=== PATIENT | female | born 1995 | race American Indian/Alaskan Native ===

== ENCOUNTER 2019-06-05 10:18 | Emergency (ER) | payer SELFPAY ==
--- NOTE | 2019-06-05 11:34 | Emergency Department Report ---
ED Abdominal Pain HPI - General Chief Complaint: Medical Clearance Stated Complaint: CHECK UP Time Seen by Provider: 06/05/19 11:33 Source: patient Mode of arrival: Ambulatory Limitations: No Limitations - History of Present Illness Initial Comments: Patient requesting a "check up" to check and see if anything is wrong with her body. Complaint: abdominal pain Onset/Timin -: hour(s) Location: RLQ, suprapubic Radiation: none Migration to: no migration Severity: mild Severity scale (0 -10): 1 Quality: aching Consistency: intermittent Improves With: nothing Worsens With: nothing Context: other (unknown) Associated Symptoms: denies other symptoms. denies: nausea, vomiting, diarrhea, fever, chills, constipation, dysuria, hematemesis, hematochezia, melena, hematuria, anorexia, syncope - Related Data LMP Date: 06/01/19 Allergies Allergy/AdvReac Type Severity Reaction Status Date / Time No Known Allergies Allergy Verified 06/05/19 10:28 ED Review of Systems ROS: Stated complaint: CHECK UP Other details as noted in HPI Constitutional: denies: chills, fever Eyes: denies: eye pain, eye discharge, vision change ENT: denies: ear pain, throat pain Respiratory: denies: cough, shortness of breath, wheezing Cardiovascular: denies: chest pain, palpitations, dyspnea on exertion, orthopnea Endocrine: no symptoms reported Gastrointestinal: denies: abdominal pain, nausea, vomiting, diarrhea, constipation, hematemesis, melena Genitourinary: denies: urgency, dysuria, discharge Musculoskeletal: denies: back pain, joint swelling, arthralgia Skin: denies: rash, lesions Neurological: denies: headache, weakness, paresthesias Psychiatric: denies: anxiety, depression Hematological/Lymphatic: denies: easy bleeding, easy bruising ED Past Medical Hx - Past Medical History Previous Medical History?: No - Surgical History Past Surgical History?: No - Social History Smoking Status: Never Smoker Substance Use Type: None ED Physical Exam - General Limitations: No Limitations General appearance: alert, in no apparent distress - Neck Neck exam: Present: normal inspection, full ROM. Absent: tenderness, meningismus, lymphadenopathy, thyromegaly - Respiratory Respiratory exam: Present: normal lung sounds bilaterally. Absent: respiratory distress, wheezes, rales, rhonchi, stridor, chest wall tenderness, accessory muscle use, decreased breath sounds, prolonged expiratory - Cardiovascular Cardiovascular Exam: Present: regular rate, normal rhythm, normal heart sounds. Absent: systolic murmur, diastolic murmur, rubs, gallop - GI/Abdominal GI/Abdominal exam: Present: soft, tenderness (RLQ and suprapubic), normal bowel sounds. Absent: guarding, rebound, rigid, diminished bowel sounds, hyperactive bowel sounds, hypoactive bowel sounds, organomegaly, mass, bruit, pulsatile mass - Expanded GI/Abdominal Exam Expanded GI/Abdominal exam: Absent: psoas sign, obturator sign, heel tap sign, Maloney's sign, Rovsing's sign, tenderness at Mcburney's Point, ascites - Extremities Exam Extremities exam: Present: normal inspection, full ROM, normal capillary refill. Absent: tenderness, pedal edema, joint swelling, calf tenderness - Back Exam Back exam: Present: normal inspection, full ROM. Absent: tenderness, CVA tenderness (R), CVA tenderness (L), muscle spasm, paraspinal tenderness, vertebral tenderness, rash noted - Neurological Exam Neurological exam: Present: alert, oriented X3, CN II-XII intact, normal gait, reflexes normal. Absent: motor sensory deficit - Psychiatric Psychiatric exam: Present: normal affect, normal mood - Skin Skin exam: Present: warm, dry, intact, normal color. Absent: rash ED Course Vital Signs 06/05/19 06/05/19 10:29 15:12 Temperature 98.4 F Pulse Rate 77 68 Respiratory 16 18 Rate Blood Pressure 135/81 Blood Pressure 128/76 [Left] O2 Sat by Pulse 100 99 Oximetry ED Medical Decision Making - Lab Data Lab Results 06/05/19 Range/Units 11:40 Urine Color Yellow (Yellow) Urine Turbidity Clear (Clear) Urine pH 5.0 (5.0-7.0) Ur Specific [place] 1.027 (1.003-1.030) Urine Protein <15 mg/dl (Negative) mg/dL Urine Glucose (UA) Neg (Negative) mg/dL Urine Ketones Neg (Negative) mg/dL Urine Blood Neg (Negative) Urine Nitrite Neg (Negative) Ur Reducing Substances Not Reportable Urine Bilirubin Neg (Negative) Urine Ictotest Not Reportable Urine Urobilinogen 2.0 (<2.0) mg/dL Ur Leukocyte Esterase Neg (Negative) Urine WBC (Auto) 1.0 (0.0-6.0) /HPF Urine RBC (Auto) 4.0 (0.0-6.0) /HPF U Epithel Cells (Auto) 1.0 (0-13.0) /HPF Urine Mucus 1+ /HPF Urine HCG, Qual Negative (Negative) Vital Signs 06/05/19 10:29 Temperature 98.4 F Pulse Rate 77 Respiratory 16 Rate Blood Pressure 135/81 O2 Sat by Pulse 100 Oximetry - Radiology Data Radiology results: image reviewed Endovaginal pelvic ultrasound INDICATION: Pelvic pain FINDINGS: Uterus measures 7.3 x 4.7 x 3.2 cm and is normal. Endometrial stripe is normal at 1.7 mm. Left ovary measures 2.9 x 2.7 x 2.3 cm and contains follicular cysts but is otherwise normal. Right ovary measures 3.4 x 2.3 x 2.3 cm and contains a septated cyst measuring 1.2 x 1.1 x 1 cm. No ovarian torsion is seen. There is no free fluid. No significant abnormality. IMPRESSION: Bilateral ovarian cysts. No significant abnormality. ULTRASOUND ABDOMEN, COMPLETE INDICATION: low abdominal pain. COMPARISON: None available. FINDINGS: Pancreas: Normal. Abdominal Aorta: Normal. IVC: Normal. Liver: Normal. Gallbladder: Normal. Bile ducts: Normal. Common Bile Duct measures 3.2 mm. Right Kidney: Normal. Left Kidney: Normal. Spleen: Normal. Free fluid: None. Additional Findings: None. IMPRESSION: 1. No sonographic abnormality of the abdomen. - Medical Decision Making During the course of ED, all other systems were unremarkable except for documentation in HPI. Radiology studies revealed bilateral ovarian cysts. No significant abnormality and no sonographic abnormality of the abdomen. Patient was instructed to follow up with Data Entry Analyst, she verbalized understanding - Differential Diagnosis Ovarian Cyst, Abdominal Pain, UTI, Pelvic Pain Critical care attestation.: If time is entered above; I have spent that time in minutes in the direct care of this critically ill patient, excluding procedure time. ED Disposition Clinical Impression: Abdominal pain Qualifiers: Abdominal location: lower abdomen, unspecified Qualified Code(s): R10.30 - Lower abdominal pain, unspecified Ovarian cyst Qualifiers: Laterality: bilateral Qualified Code(s): N83.201 - Unspecified ovarian cyst, right side; N83.202 - Unspecified ovarian cyst, left side Disposition: DC-01 TO HOME OR SELFCARE Is pt being admited?: No Does the pt Need Aspirin: No Condition: Stable Instructions: Abdominal Pain (ED) Additional Instructions: Follow up with selective referral given at discharge. Referrals: PRIMARY CARE, [Primary Care Provider] - 3-5 Days [facility] [Outside] - 3-5 Days [facility] [Outside] - 3-5 Days Forms: Work/School Release Form(ED) Time of Disposition: 14:56
[2019-06-05 13:12] LABS: HCG Qualitative,Urine Negative (Negative)
[2019-06-05 13:14] LABS: Bilirubin,Urine NEG (Negative); Blood,Urine NEG (Negative); Color,Urine Yellow (Yellow); Mucus,Urine 1+ /HPF; Protein,Urine <15 mg/dL mg/dL (Negative)
--- NOTE | 2019-06-05 14:39 | Ultrasound Report ---
ULTRASOUND ABDOMEN, COMPLETE INDICATION: low abdominal pain. COMPARISON: None available. FINDINGS: Pancreas: Normal. Abdominal Aorta: Normal. IVC: Normal. Liver: Normal. Gallbladder: Normal. Bile ducts: Normal. Common Bile Duct measures 3.2 mm. Right Kidney: Normal. Left Kidney: Normal. Spleen: Normal. Free fluid: None. Additional Findings: None. IMPRESSION: 1. No sonographic abnormality of the abdomen. Signer Name: Chan Alegre MD Signed: 06/05/2019 2:35 PM Workstation Name: [id number]
--- NOTE | 2019-06-05 14:54 | Ultrasound Report ---
Endovaginal pelvic ultrasound INDICATION: Pelvic pain FINDINGS: Uterus measures 7.3 x 4.7 x 3.2 cm and is normal. Endometrial stripe is normal at 1.7 mm. L eft ovary measures 2.9 x 2.7 x 2.3 cm and contains follicular cysts but is otherwise normal. Right ov parag measures 3.4 x 2.3 x 2.3 cm and contains a septated cyst measuring 1.2 x 1.1 x 1 cm. No ovarian t orsion is seen. There is no free fluid. No significant abnormality. IMPRESSION: Bilateral ovarian cysts. No significant abnormality. Signer Name: Chan Alegre MD Signed: 06/05/2019 2:49 PM Workstation Name: [id number]
[2019-06-05 15:12] VITALS: BP 128/76
== END 2019-06-05 15:11 | disposition home or self-care (01) ==
LOC: ED 10:18
DX: N83.201 Unspecified ovarian cyst, right side (principal); N83.202 Unspecified ovarian cyst, left side
CPT/HCPCS: 76700; 76830; 81001; 81025; 99284